=== PATIENT | female | born 1995 | race Caucasian/White ===

== ENCOUNTER 2021-10-27 20:17 | Emergency (ER) | payer MEDICAID ==
[~2021-10-27] VITALS: Ht 165.1 cm; Wt 98.0 kg
[2021-10-28 00:03] LABS: BASOPHILS % 0.4 % (0.0-2.0); EOSINOPHILS % 0.6 % (0.0-5.0); HEMATOCRIT. 29.2 % (36.0-48.0); HEMOGLOBIN. 9.4 g/dL (12.0-16.0); LYMPHOCYTES % 23.1 % (20.0-50.0); MEAN CORPUSCULAR HEMOGLOBIN 23.6 pg (28.0-32.0); MEAN PLATELET VOLUME 7.5 fl (7.4-10.4); MONOCYTES % 10.1 % (2.0-8.0); NEUTROPHILS % 65.8 % (40.0-76.0); PLATELET 285 x1000/uL (130-400); RED BLOOD CELL COUNT 4.01 mill/uL (4.2-5.4); RED CELL DISTRIBUTION WIDTH 20.7 % (11.6-14.6)
[2021-10-28 00:10] LABS: CHLORIDE 104 mEq/L (98-107)
[2021-10-28] MEDS ORDERED: ACETAMINOPHEN WITH CODEINE 300/30MG TABLET PO STA (00:42)
[2021-10-28] MEDS ORDERED: ONDANSETRON HCL 4MG/2ML INJ IV STA (00:42)
[2021-10-28 03:26] LABS: CLARITY URINE CLOUDY (CLEAR); COLOR URINE YELLOW (YELLOW); KETONES URINE TRACE (NEGATIVE); LEUKOCYTE ESTERASE URINE NEGATIVE (NEGATIVE); NITRITE URINE NEGATIVE (NEGATIVE); OCCULT BLOOD URINE 3+ (NEGATIVE); PROTEIN URINE TRACE (NEGATIVE); SPECIFIC GRAVITY URINE 1.025 (1.005-1.030)
[2021-10-28] MEDS ORDERED: IOHEXOL-300 100 ML BOTTLE ONE (03:56)
[2021-10-28] MEDS ORDERED: T3 PO (05:00)
[2021-10-28 05:16] VITALS: BP 124/78
== END 2021-10-28 05:15 | disposition home or self-care (01) ==
LOC: ER 20:17
DX: S20.212A Contusion of left front wall of thorax, initial encounter (principal); R10.2 Pelvic and perineal pain; V49.40XA Driver injured in collision with unspecified motor vehicles in traffic accident, initial encounter; Y93.89 Activity, other specified; Y92.488 Other paved roadways as the place of occurrence of the external cause; M54.9 Dorsalgia, unspecified
CPT/HCPCS: 36415; 70450; 71260; 74177; 80053; 81003; 81025; 85025; 96374; 99284; J2405; Q9967